=== PATIENT | female | born 1970 | race Caucasian/White ===

== ENCOUNTER → 2024-08-11 14:07 | Outpatient (REF) | payer BC, SELFPAY | LOC: HWRAD 14:07 | PROVIDERS: ATTENDING PHYSICIAN Family Medicine | DX: R22.1 Localized swelling, mass and lump, neck (principal) | CPT/HCPCS: 76536 ==

== ENCOUNTER → 2024-08-12 12:57 | Outpatient (REF) | payer BC, SELFPAY | LOC: WDC 12:57 | PROVIDERS: ATTENDING PHYSICIAN Family Medicine | DX: Z12.31 Encounter for screening mammogram for malignant neoplasm of breast (principal) | CPT/HCPCS: 77063; 77067 ==

== ENCOUNTER → 2024-11-11 07:53 | Outpatient (REF) | payer BC, SELFPAY | LOC: WDC 07:53 | PROVIDERS: ATTENDING PHYSICIAN Family Medicine | DX: R92.2 Inconclusive mammogram (principal) | CPT/HCPCS: 76641 ==

== ENCOUNTER 2024-12-05 09:35 | Emergency (ER) | payer BC, SELFPAY ==
[2024-12-05 09:57] VITALS: BP 127/84
--- NOTE | 2024-12-05 11:20 | ED.GENMED ---
History of Present Illness
General
Chief Complaint: Back Pain
Source: patient
Exam Limitations: none
Time Seen by Provider: 12/05/24 11:05
History of Present Illness
History of Present Illness:
54-year-old female presents complaining of left lateral hip pain that radiates up into the upper buttock. The pain radiates down the lateral thigh but stop before the knee. There is no associated numbness or tingling. Remotely she was diagnosed
with a left labral tear but this pain is different. No bowel or bladder dysfunction. No fever. Advil seem to help somewhat. No injury otherwise.
Past History
Past History
ED Past Medical History: None
ED Past Surgical History: None
Social History
Tobacco: Non-smoker
Alcohol: Occasional
Personal:
Living: with family
Employment: Employed
Family History
Family History: Negative CAD or Sudden
Phy Exam
Physical Exam
Physical Exam:
General: Well-appearing female no acute respiratory distress HEENT: Normocephalic atraumatic
Musculoskeletal exam: Left lateral hip tender over the trochanteric area. Slight internal/external rotation reproduces pain. Patellar reflexes intact. Good sensation to the leg. No rash
Skin is warm without rash
Vascular: 2+ DP pulse left foot
Course
Vital Signs
Initial and Last Documented VS:
Initial Vital Signs
Temp Pulse Resp BP Pulse Ox
97.9 F 81 16 127/84 100
12/05/24 09:57 12/05/24 09:57 12/05/24 09:57 12/05/24 09:57 12/05/24 09:57
Last Documented Vital Signs
Temp Pulse Resp BP Pulse Ox
97.9 F 81 16 127/84 100
12/05/24 09:57 12/05/24 09:57 12/05/24 09:57 12/05/24 09:57 12/05/24 09:57
MDM/Problems Addressed
Differential Diagnosis Includes:
Left lateral hip and leg pain. Consider bursitis versus radiculopathy. No rash to suggest shingles. There is no trauma to suggest bony injury. She notes some relief with Advil. Will add prednisone and gabapentin. Will have her follow-up with
orthopedics. No other at this time
*Critical Care Note
Total Time (30-74mins, 75-104mins- exclusive of procedures): Not Applicable
ED Attending Note
-
Portions of this chart may have been created with voice recognition software.� Occasional wrong word or��sound alike� substitutions may have occurred due to the inherent limitations of voice recognition software.
Discharge Plan
Departure
Patient Disposition: Home (Routine Discharge)
Date of Disposition: 12/05/24
Time of Disposition: 11:24
Patient with high blood pressure during this ER visit?: No
Discharge Problem:
Acute hip pain
Instructions: Bursitis, Sciatica (DC)
Prescriptions:
New
prednisone 10 mg Tablet
See Rx Instructions .ROUTE .COMPLEX Qty: 30 0RF
Rx Instructions:
Take By Mouth:
40 mg daily x3 days, 30 mg daily x3 days,
20 mg daily x3 days, 10 mg daily x3 days.
gabapentin 300 mg capsule
300 mg PO BID Qty: 14 0RF
No Action
calcium carbonate 500 MG tablet
500 mg PO DAILY
Multiple Vitamins
1 tab PO DAILY
prochlorperazine maleate 5 MG tablet
5 mg PO Q6HPRN PRN (Reason: nausea) Qty: 20 0RF
ibuprofen 600 MG tablet
600 mg PO Q6HPRN PRN (Reason: PAIN, FEVER) Qty: 30 0RF
Activity Restrictions/Additional Instructions:
Use steroid and gabapentin as directed. Apply warm to the area. Return if worse otherwise follow-up
Interventions
Interventions:
*Risk Screen - Suicide Last Done: 12/05/24 09:57
*General Assessment Last Done: 12/05/24 11:20
*Neglect/Abuse Screening Last Done: 12/05/24 11:20
*ED- Fall Risk Assessment Last Done: 12/05/24 11:20
ED-Musculoskeletal Assessment Last Done: 12/05/24 11:20
Discharge Date and Time
Print Language: [place]
== END 2024-12-05 11:35 | disposition home or self-care (01) ==
LOC: EMR 09:35
PROVIDERS: EMERGENCY PHYSICIAN Emergency Medicine; FAMILY PHYSICIAN Family Medicine
DX: M25.552 Pain in left hip (principal)
CPT/HCPCS: 99283